=== PATIENT | female | born 1990 | race African-American/Black ===

== ENCOUNTER → 2021-10-13 | Day surgery (SDC) | payer BC ==
[~2021-10-13] MED LIST: ABILIFY2 MG PO; DICYCLOMINE HCL10 MG PO; FENTANYL CITRATE/PF 100MCG/2 ML INJ ONE; HYDROXYZINE HCL25 MG PO; LEXAPRO5 MG PO; LIDOCAINE HCL 2% LOCAL INJ 5 ML SDV VIAL INJ ONE; MIDAZOLAM HCL 2 MG/2 ML VIAL ONE; NORETHINDRONE0.35 MG PO; ONDANSETRON HCL INJ 2MG/ML 2ML 2 MG/ML VIAL ONE; POVIDONE IODINE 0.05% 0.05 % ML PO ONE; PROPOFOL IV EMULSION 10 MG/ML 20 ML VIAL ONE; SIMETHICONE 40 MG/0.6 ML BTL ONE
[2021-10-13 09:15] VITALS: BP 135/90
== END | disposition home or self-care (01) ==
LOC: OR 05:36
PROVIDERS: ATTEND Internal Medicine Gastroenterology
DX: K25.9 Gastric ulcer, unspecified as acute or chronic, without hemorrhage or perforation (principal); K29.50 Unspecified chronic gastritis without bleeding; K62.5 Hemorrhage of anus and rectum; K64.8 Other hemorrhoids; Z71.3 Dietary counseling and surveillance; E66.01 Morbid (severe) obesity due to excess calories; J45.909 Unspecified asthma, uncomplicated; F41.9 Anxiety disorder, unspecified; F32.A Depression, unspecified; Z88.0 Allergy status to penicillin; Z01.812 Encounter for preprocedural laboratory examination; Z20.822 Contact with and (suspected) exposure to COVID-19; Z79.899 Other long term (current) drug therapy; Z78.9 Other specified health status; Z68.42 Body mass index [BMI] 45.0-49.9, adult; Z83.71 Family history of colonic polyps
CPT/HCPCS: 43239; 45378; 81025; J2001; J2250; J2405; J2704; J3010; U0002